=== PATIENT | female | born 1965 | race Caucasian/White ===

== ENCOUNTER → 2020-03-30 14:15 | Outpatient (CLI) | payer BC, SELFPAY ==
[2020-03-30 15:07] LABS: Basophils # 0.1 K/mm3 (0-0.2); Basophils % 0.6 % (0.1-2.0); Eosinophils % 0.1 % (0.1-12.0); Hematocrit 50.1 % (37.0-47.0); Hemoglobin 16.4 g/dL (12.2-16.2); Lymphocytes # 2.7 K/mm3 (0.7-4.5); Lymphocytes % 26.8 % (10-50); Mean Corpuscular HGB Conc 32.8 g/dL (31.8-35.4); Mean Corpuscular Hemoglobin 29.8 pg (27.0-31.2); Mean Platelet Volume 7.4 fl (7.4-10.4); Monocytes # 0.3 K/mm3 (0.1-1.0); Monocytes % 3.3 % (1.7-9.3); Neutrophils % 69.3 % (37.0-80.0); Platelet Count 309 K/mm3 (142-424); Red Cell Distribution Width 13.7 % (11.5-17.5); White Blood Count 10.1 K/mm3 (4.8-10.8)
[2020-03-30 15:45] LABS: Alanine Aminotransferase 24 U/L (12-78); Albumin Level 4.3 g/dl (3.5-5.0); Albumin/Globulin Ratio 1.5 (1.1-1.8); Alkaline Phosphatase 76 U/L (38-126); Amylase 49 U/L (30-110); Anion Gap 11.5 mEq/L (5-15); Aspartate Amino Transferase 27 U/L (14-36); Bilirubin,Total 0.4 mg/dl (0.2-1.3); Blood Urea Nitrogen 10 mg/dl (7-17); Calcium 9.6 mg/dl (8.4-10.2); Carbon Dioxide 31 mmol/L (22.0-30.0); Chloride 101 mmol/L (98-107); Estimated Glomerular Filt Rate 88 ml/min (>60); GFR (African American) 106 ML/MIN (>60); Globulin 2.9 g/dL (1.3-3.2); Glucose 100 mg/dl (74-100); Lipase 45 U/L (23-300); Potassium 4.5 mmoL/L (3.5-5.1); Sodium 139 mmol/L (136-145); Total Protein,Serum 7.2 g/dl (6.3-8.2)
== END ==
PROVIDERS: Visit Provider Nurse Practitioner Family
DX: R10.9 Unspecified abdominal pain (principal)
CPT/HCPCS: 36415; 80053; 82150; 83690; 85025; 86677

== ENCOUNTER 2022-05-15 12:09 | Emergency (ER) | payer BC, SELFPAY ==
[2022-05-15 14:27] VITALS: BP 133/91; PULSE 100; RESP 18; TEMP 37; O2SAT 97; BMI 31.4
--- NOTE | 2022-05-15 14:31 | EXP.UTC ---
Discharge Plan Disposition Patient Disposition: Home, Self-Care Condition: Good Prescriptions Prescriptions: New amoxicillin [amoxicillin] 500 mg tablet 500 mg PO TID 10 Days Qty: 30 0RF benzonatate [benzonatate] 100 mg capsule 100 mg PO TIDP PRN (Reason: Cough) Qty: 30 0RF methylprednisolone 4 mg Tablets,Dose Pack 4 mg PO DIRECTED Qty: 21 0RF Referrals Follow up/Referrals: Natalia Crockett [Primary Care Provider] - See instructions Activity Restrictions/Add. Instructions Additional Instructions/Restrictions: Drink plenty of fluids. Take tylenol or ibuprofen for pain or fever. Take the medications as directed. Follow up with your regular doctor. GO TO THE ER FOR ANY WORSENING SYMPTOMS Clinical Impressions Clinical Impression: Otitis media Instructions Patient Instructions: Middle Ear Infection Discharge ED Provider: Jea Brito [facility] General Stated complaint: Left earache Mode of Arrival: Ambulatory Source of Information: Patient Limitations: No Limitations Time Seen by Provider: 05/15/22 14:30 HEENT Symptoms (Recalled from RN notes): Yes Resp Symptoms (Recalled from RN notes): Yes Skin Symptoms (Recalled from RN notes): No MS Symptoms (Recalled from RN notes): No Functional Status (Recalled from RN notes): n/a History of Present Illness Provider Complaint: pt comes in with c/o left ear pain, sinus drainage, fever. symptoms began sunday Related Data Previous Rx's Medication Instructions Recorded amoxicillin 500 mg tablet 500 mg PO TID 10 days #30 tabs 05/15/22 benzonatate 100 mg capsule 100 mg PO TIDP PRN Cough #30 caps 05/15/22 methylprednisolone 4 mg tablets in 4 mg PO DIRECTED #21 tabs 05/15/22 a dose pack Allergies Allergy/AdvReac Type Severity Reaction Status Date / Time From LEVAQUIN Allergy Unknown MAKES HER Uncoded 10/10/17 14:08 FEEL FLUSHED AND FUNNY Worker's Comp Is this a Worker's Comp case?: No [facility] Disclaimer: The information contained in this section may have been updated after the patient was seen, as this information can be updated by other users. Social History Smoking Status: Current every day smoker tobacco type: cigarettes packs per day: 1 alcohol intake: current substance use type: denies use current occupational status: retired Travel in the last 8 weeks: None ROS Obtained: Yes All systems reviewed & no additional complaints except as documented Constitutional Constitutional: Denies chills, Reports fever(s) and Reports poor appetite Eyes Eyes: Denies eye discharge ENT Ears, Nose, Mouth, and Throat: Denies ear discharge, Reports otalgia, Denies hearing loss, Denies sinus pain and Reports sore throat Cardiovascular Cardiovascular: Denies chest pain and Denies dyspnea Respiratory Respiratory: Denies chest congestion, Reports cough and Denies dyspnea Gastrointestinal Gastrointestingal: Denies abdominal pain, diarrhea, nausea or vomiting Musculoskeletal Musculoskeletal: Denies arthralgias Integumentary/Breasts Skin/Breast: Denies rash Physical Exam General General appearance: alert and in no apparent distress Head Head exam: atraumatic, normocephalic and normal inspection Eye Eye exam: Present normal appearance; Absent PERRL or EOMI ENT ENT exam: Present mucous membranes moist and normal external ear exam Expanded ENT Exam TM/Canal exam: Bilateral TM: erythema, bulging and effusion Nose exam: Absent sinus tenderness Nasal speculum exam: Bilateral: normal Mouth exam: Present normal external inspection and other; Absent drooling Teeth exam: Present normal inspection Throat exam: Present tonsillar erythema and tonsillomegaly Neck Neck exam: Present normal inspection, full ROM and trachea midline; Absent tenderness, meningismus or lymphadenopathy Chest Chest inspection: Present normal inspection and symmetric chest wall rise; Absent tendern
[2022-05-15 15:03] VITALS: BP 133/91; PULSE 100; RESP 18; TEMP 37
== END 2022-05-15 15:04 | disposition home or self-care (01) ==
PROVIDERS: Emergency Provider Nurse Practitioner Family; PCP Family Medicine
DX: H66.90 Otitis media, unspecified, unspecified ear (principal)
CPT/HCPCS: 99212; G0463

== ENCOUNTER 2024-06-01 10:02 | Emergency (ER) | payer BC, SELFPAY ==
[2024-06-01 10:31] VITALS: BP 125/90; PULSE 129; RESP 20; TEMP 37.2; O2SAT 94; BMI 32.3
--- NOTE | 2024-06-01 10:34 | ED_ITS ---
Discharge Plan Disposition Patient Disposition: Home, Self-Care Condition: Good Prescriptions Prescriptions: New amoxicillin 875 mg tablet 875 mg PO Q12H Qty: 20 0RF benzonatate 100 mg capsule 100 mg PO TIDP PRN (Reason: Cough) Qty: 30 0RF methylprednisolone 4 mg Tablets,Dose Pack 4 mg PO DIRECTED 6 Days Qty: 21 0RF Rx Instructions: Take 1 pack as directed for 6 days Referrals Follow up/Referrals: Natalia Crockett [Primary Care Provider] - See instructions Activity Restrictions/Add. Instructions Additional Instructions/Restrictions: Drink plenty of fluids. Take tylenol or ibuprofen for pain or fever. Take the medications as directed. Follow up with your regular doctor. GO TO THE ER FOR ANY WORSENING SYMPTOMS Clinical Impressions Clinical Impression: Sinusitis, Acute bronchitis Instructions Patient Instructions: DI for Sinusitis, DI for Acute Bronchitis Print Language Print Language: French Discharge ED Provider: Jae Brito [facility] General Stated complaint: cough congestion Mode of Arrival: Ambulatory Source of Information: Patient Time Seen by Provider: 06/01/24 10:34 Description of Symptoms (Recalled from Triage Doc. by RN): COUGH AND CONGESTION, N/V/HANSON FEVER HEENT Symptoms (Recalled from RN notes): Yes Resp Symptoms (Recalled from RN notes): Yes Skin Symptoms (Recalled from RN notes): No MS Symptoms (Recalled from RN notes): No Functional Status (Recalled from RN notes): WNL Related Data Previous Rx's ?Medication ?Instructions ?Recorded amoxicillin 875 mg tablet 875 mg PO Q12H #20 tabs 06/01/24 benzonatate 100 mg capsule 100 mg PO TIDP PRN Cough #30 caps 06/01/24 methylprednisolone 4 mg tablets in 4 mg PO DIRECTED 6 days #21 tabs 06/01/24 a dose pack Allergies Allergy/AdvReac Type Severity Reaction Status Date / Time From LEVAQUIN Allergy Unknown MAKES HER Uncoded 10/10/17 14:08 FEEL FLUSHED AND FUNNY Worker's Comp Is this a Worker's Comp case?: No [facility] Disclaimer: The information contained in this section may have been updated after the patient was seen, as this information can be updated by other users. Social History (Updated 05/16/22 @ 21:07 by Jae Brito APRN) Smoking Status: Current every day smoker tobacco type: cigarettes packs per day: 1 alcohol intake: current alcohol intake frequency: holidays/special occasions only substance use type: denies use current occupational status: retired Travel in the last 8 weeks: None Have you lived/traveled outside [place] in past 30 days?: No Contact w/someone who lives/traveled outside US past 30 days?: No Exposure to someone with infectious disease in past 14 days?: No Do you have a fever (greater than 100.4 F or 38 C)?: No Have you tested positive for COVID-19: No Exposed to someone with COVID-19 in past 14 days?: No Do you have a sore throat?: Yes Do you have a cough?: Yes Do you have any weakness?: No Do you have any diarrhea?: No Are you experiencing any unusual bleeding?: No Do you have any muscle aches/pain?: No Do you have any abdominal pain?: No Are you experiencing loss of taste or smell?: No ROS Obtained: Yes All systems reviewed & no additional complaints except as documented Constitutional Constitutional: Reports poor appetite Eyes Eyes: Reports system reviewed and no additional complaints, except as documented ENT Ears, Nose, Mouth, and Throat: Reports as per HPI Cardiovascular Cardiovascular: Reports system reviewed and no additional complaints, except as documented and Denies chest pain Respiratory Respiratory: Denies shortness of breath, Reports chest congestion, Reports cough, Denies stridor and Denies wheezing Gastrointestinal Gastrointestingal: Reports system reviewed and no additional complaints, except as documented; Denies abdominal pain, diarrhea or vomiting Musculoskeletal Musculoskeletal: Reports system reviewed and no additional complaints, except as documented and Denies arthralgias Integumentary/Breasts Skin/Breast: Reports system reviewed and no additional complaints, except as documented and Denies rash Neurologic Neurologic: Denies paresthesias Allergic/Immunologic Allergic/Immunologic: Denies wheezing Physical Exam General General appearance: alert and in no apparent distress Eye Eye exam: Present normal appearance, PERRL and EOMI ENT ENT exam: Present mucous membranes moist and normal external ear exam Expanded ENT Exam External ear exam: Present normal external inspection TM/Canal exam: Bilateral TM: erythema and bulging Nose exam: Absent sinus tenderness Nasal speculum exam: Bilateral: normal Mouth exam: Present normal external inspection; Absent drooling Teeth exam: Present normal inspection Throat exam: Present tonsillar erythema and tonsillomegaly Neck Neck exam: Present normal inspection, full ROM and trachea midline; Absent tenderness, lymphadenopathy or thyromegaly Chest Chest inspection: Present normal inspection and symmetric chest wall rise; Absent tenderness or rash Respiratory Respiratory exam: Present normal lung sounds bilaterally; Absent respiratory distress, wheezes, stridor or accessory muscle use Cardiovascular Cardiovascular exam: Present regular rate, normal rhythm and normal heart sounds Abdominal Exam Abdominal exam: Present soft; Absent distention, tenderness, guarding, rebound or rigidity Extremities Exam Extremities exam: Present normal inspection, full ROM and normal capillary refill; Absent tenderness or calf tenderness Back Exam Back exam: Present normal inspection and full ROM; Absent tenderness Neurological Exam Neurological exam: Present alert and oriented X3 Psychiatric Psychiatric exam: Present normal affect and normal mood Skin Skin exam: Present warm, dry, intact and normal color Lymphatic Lymphatic Findings: no adenopathy Medical Decision Making Medical Records Medical records reviewed: No I reviewed the patient's medical records. Screening: Per USPSTF and CDC recommendations, given the prevalence of disease in our region, it is our hospital?s policy to screen for HIV and viral Hepatitis for all patients aged 18 and over and those with ongoing risk factors. Eron Inquiry Pt receiving controlled substance: No Vital Signs: 06/01/24 10:31 Temperature 99.0 F Temperature Source Oral Pulse Rate [Left Radial] 129 H Respiratory Rate 20 Blood Pressure [Left Arm] 125/90 Blood Pressure Mean [Left Arm] 101 02 Sat by Pulse Oximetry 94 L Lab Data Lab results reviewed: Yes I reviewed the patient's lab results.
[2024-06-01 10:56] VITALS: BP 125/90; PULSE 129; RESP 20; TEMP 37.2
== END 2024-06-01 10:59 | disposition home or self-care (01) ==
PROVIDERS: Emergency Provider Nurse Practitioner Family; PCP Family Medicine
DX: J20.9 Acute bronchitis, unspecified (principal); J32.9 Chronic sinusitis, unspecified
CPT/HCPCS: 99213; G0381

== ENCOUNTER 2024-12-21 09:30 | Outpatient (CLI) | payer BC, SELFPAY ==
[2024-12-21 21:05] LABS: Influenza A, PCR Not Detected (NotDetected)
[2024-12-21 21:06] LABS: Influenza B, PCR Not Detected (NotDetected)
--- OUTSIDE RECORDS SUMMARY | 2024-12-23 10:48 | XMS_ITS | Patient Health Record ---
Author Organization [facility] Billing Info Address [address] [place], [place] [id number] Support Name Relationship Address Phone Melanie Martinez Guarantor Unknown [phone] Allergies Allergen (clinical drug ingredient) Drug/Non Drug Allergy documented on EMR Reaction Allergy Type Onset Date Status Levaquin flushing Drug Allergy Active Reason For Referral No Information Medications Medication SIG (Take, Route, Frequency, Duration) Notes Start Date End Date Status Multivitamins Orally Active Zoloft 50 MG 1 tablet Orally Once a day Active Social History Tobacco Use: Social History Observation Description Date Details (start date - stop date) Current Smoker NA - NA Tobacco Status: Question Answer Notes Patient is a current every day smoker Plan Of Treatment No Information Medical (General) History Medical History History ICD Code anxiety breast cancer Surgical History Surgery Date(Month/Year) right mastectomy 07/2011 Hospitalization History Reason Date(Month/Year) see surgical
--- OUTSIDE RECORDS SUMMARY | 2024-12-23 10:48 | XMS_ITS | Clinical Summary ---
Author Organization [facility] Address [address] [place] [id number] Phone [email or web address] Care Team Providers Care Lean Coach Name Role Phone Natalia Crockett Primary Care Provider [phone] Active Problems Problem Noted Date Diagnosed Date Mixed anxiety depressive disorder 09/05/2016 Overview (06/13/2017): Immunizations Immunization Administration Dates Next Due Influenza single-dose SYRING E (Afluria, Fluarix, Fluzone, Flulaval) trivalent (CVX-140) 03/10/2016 Social History Tobacco Use Types Packs/Day Years Used Date Smoking Tobacco: Every Day Intimate Partner Violence Answer Date R ecorded Insults You Not on file 08/30/2020 Threatens You Not on file 08/30/2020 Screams at You Not on file 08/30/2020 Physically Hurt Not on file 08/30/2020 Intimate Partner Violence Score Not on file 08/30/2020 Stress Answer Date Recorded Stress in your Life Not on file 03/23/2024 Dealing with Stress 3 03/23/2024 Comments Unknown Sex and Gender Information Value Date Recorded Sex Assigned at Not on file Legal Sex Female 1:36 PM [employer] Gender Identity Not on file Sexual Orientation Not on file Last Filed Vital Signs Vital Sign Reading Time Taken Comments Blood Pressure 132/85 07/25/2018 9:43 AM EST Pulse 101 09/05/2016 1:09 PM CDT Temperature - - Respiratory Rate - - Oxygen Saturation - - Inhaled Oxygen Concentration - - Weight 94.3 kg (208 lb) 07/25/2018 9:43 AM EST Height 170.2 cm (5' 7 ) 07/25/2018 9:43 AM EST Body Mass Index 32.58 07/25/2018 9:43 AM EST Plan of Treatment Health Maintenance Due Date Last Done Comments CT Colonography 1966 Cervical Cancer Screening Combo 1966 Colonoscopy 1966 Colorectal Cancer Screening Combo 1966 DNA Cologuard 1966 Dental Cleaning/Exam 1966 FIT or FOBT Test 1966 HIV Screening 1966 HPV / Cotest 1966 Hepatitis C Screening 1966 Pap Testing 1966 Sigmoidoscopy 1966 Annual Preventive Exam 1984 Hep B Infection Screening - Triple Screen 1984 Hepatitis B Immunization (1 of 3 - 19+ 3-dose series) 1985 Pneumococcal: Ped (0 to 5 Yrs) and At-Risk Member (6 to 64 Yrs) (1 of 2 - PCV) 1985 03/04/2010 Breast Cancer Screening 1996 Zoster Immunization (1 of 2) 2016 Tetanus Diphtheria and Pertussis Immunization (2 - Td or Tdap) 03/01/2019 03/01/2009 Covid-19 Immunization ( - 2023- season) 2024 Influenza Immunization (#1) 01/19/202502/19, 06/06/2011 Pneumococcal: 65+ Years Discontinued 03/04/2010 HIB Immunization Aged Out No longer e ligible based on patient's age to complete this topic HPV Immunization Aged Out No longer e ligible based on patient's age to complete this topic Hepatitis A Immunization Aged Out No longer eligible based on patient's age to complete this topic Polio Immunization Aged Out No longer eligible based on patient's age to complete this topic Insurance [employer] [facility] Care Teams Lean Coach Relationship Specialty Start Date End Date Natalia Crockett [phone] [phone] PCP - General Family Medicine 12/24/19
[2024-12-24 15:36] LABS: Coronavirus 19, PCR Detected (NotDetected)
== END 2024-12-21 23:59 | disposition home or self-care (01) ==
LOC: LAB.DROPOF 12-23 10:46
PROVIDERS: PCP Nurse Practitioner Family; Visit Provider Nurse Practitioner Family
DX: J06.9 Acute upper respiratory infection, unspecified (principal)
CPT/HCPCS: 87636

== ENCOUNTER 2025-03-25 11:30 | Outpatient (CLI) | payer BC, SELFPAY ==
--- OUTSIDE RECORDS SUMMARY | 2025-03-25 11:58 | XMS_ITS | Patient Health Record ---
Author Organization [facility] Billing Info Address [address] [place], [place] [id number] Support Name Relationship Address Phone Melanie Martinez Guarantor Unknown [phone] Allergies Allergen (clinical drug ingredient) Drug/Non Drug [...]
--- OUTSIDE RECORDS SUMMARY | 2025-03-25 11:58 | XMS_ITS | Clinical Summary ---
Author Organization [facility] Address [address] [place] [address] Phone Care Team Providers Care Hydrometeorologist Name Role Phone Nigel Martínez MD Unavailable [ ] Conditions or Problems Problem Name Problem Code Onset Date Status Entry Date Provider Comment Standard Description Annotate NAUSEA 424849188 (SNOMED CT) Active Nigel Martínez MD Nausea CELLULITIS /ABSCESS, TRUNK 257477632 (SNOMED CT) Active Nigel Martínez MD Cellulitis and abscess of trunk MRSA RIGHT BREAST ABSCESS/CE LLULITIS N61 (ICD-10-CM) Active Emmanuelle W Inflammatory disorders of breast MRSA [id number] (SNOMED CT) Active Emmanuelle W Methicillin resistant Staphylococcus aureus infection BREAST CA D05.90 (ICD-10-CM) Active Emmanuelle W 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 ONDANSETRON HCL [id number] Nigel Martínez MD DOXYCYCLINE HYCLATE 100 MG CAPS One po bid x 14 days DOXYCYCLINE HYCLATE 12012497499 Nigel Martínez MD DOXYCYCLINE HYCLATE 100 MG CAPS One po bid x 14 days DOXYCYCLINE HYCLATE 90293846448 Nigel Martínez MD BACTRIM DS 800-160 MG TABS SULFAMETHOXAZOLE -TRIMETHOPRIM [id number] Nigel Martínez MD CUBICIN 500 MG INTRAVENOUS SOLUTION RECONSTITUTED 500mg Iv daily OPAT DAPTOMYCIN 04194194479 Nigel Martínez MD PERCOCET 7.5-500 MG ORAL TABLET OXYCODONE-ACETAM INOPHEN 06607856091 Nigel Martínez MD ZOFRAN 8 MG ORAL TABLET One po tid prn nausea. ONDANSETRON HCL 14396940104 Nigel Martínez MD CUBICIN 500 MG INTRAVENOUS SOLUTION RECONSTITUTED 500mg Iv daily OPAT DAPTOMYCIN 56249604111 Nigel Martínez MD PERCOCET 7.5-500 MG ORAL TABLET OXYCODONE-ACETAM INOPHEN 78574495176 Nigel Martínez MD BACTRIM DS 800-160 MG TABS SULFAMETHOXAZOLE -TRIMETHOPRIM 51683554284 Nigel Martínez MD TAMOXIFEN CITRATE TABLET TAMOXIFEN CITRATE TABS 57466322599 Nigel Martínez MD ZOLOFT 50 MG TABS SERTRALINE HCL 94205582460 Nigel Martínez MD DOXYCYCLINE HYCLATE 100 MG CAPS One po bid x 7 days DOXYCYCLINE HYCLATE 17624701299 Nigel Martínez MD ACIDOPHILUS CAPS LACTOBACILLUS 74908385954 Nigel Martínez MD DOXYCYCLINE HYCLATE 100 MG CAPS One po bid x 7 days DOXYCYCLINE HYCLATE 13338414682 Nigel Martníez MD CUBICIN 500 MG INTRAVENOUS SOLUTION RECONSTITUTED IV q24 OPAT DAPTOMYCIN 57445307325 Nigel Martínez MD POTASSIUM CHLORIDE ER 10 MEQ CR-TABS Take 4 tabs (40meq) by mouth X 1 dose POTASSIUM CHLORIDE 11164042131 Nigel Martínez MD DAKINS SOLUTION DAKINS SOLN 80020899732 Nigel Martínez MD LOMOTIL TABS DIPHENOXYLATE-AT ROPINE TABS 20483975117 Nigel Martínez MD POTASSIUM CHLORIDE ER 10 MEQ CR-TABS Take 4 tabs (40meq) by mouth X 1 dose POTASSIUM CHLORIDE 96260615454 Nigel Martínez MD DAKINS SOLUTION DAKINS SOLN 13141148189 Emmanuelle W ZOLOFT 50 MG TABS SERTRALINE HCL 41869310270 Emmanuelle W ACIDOPHILUS CAPS LACTOBACILLUS [id number] Emmanuelle W LOMOTIL TABS DIPHENOXYLATE-AT ROPINE TABS 11371311413 Emmanuelle W MULTIPLE VITAMINS TABS MULTIPLE VITAMIN 22080974978 Emmanuelle W CUBICIN 500 MG INTRAVENOUS SOLUTION RECONSTITUTED IV q24 OPAT DAPTOMYCIN 84059008387 Emmanuelle W Medications Administered No information available. Allergies, Adverse Reactions, Alerts Allergy Name Reaction Description Start Date Severity Statu s Provider LEVOFLOXACIN flushing in the past , otherwise tolerates it Mild Active Emmanuelle W Results Date Name Value Unit Range Flag Description Clinical Lists Update: Prelo ad CIGARET SMKG yes Tobacco smoking status SMOK STATUS current every day smoker Tobacco smoking status Lab Report: ESR (Sed Rate) ESR 28 mm/h 0-20 H Erythrocyte sedimentation rate by Westergren method Lab Report: CBC w Manual Dif f PMN BANDS 2.0 % neutrophils , band form as percent of blood leukocytes Lab Report: C-Reactive Prote in CRPCARDRISK 28.400 mg/L 0.000-10. 0 H C reactive protein [Mass/volume] in Serum or Plasma Lab Report: CPK CPK 24 U/L 26-174 L Creatine fiordaliza se [Enzymatic activity/volume] in Serum or Plasma Lab Report: Comprehensive Me tabolic Panel ANIONGAP 5 mmol/L 3-11 N anion gap, s dom GFRC 101 mL/min/1 .73m2 Glomerular Filtration Rate Calculation ALBUMIN 4.2 g/dL 3.4-4.8 N Albumin [Mass/volume] in Serum or Plasma PROTEIN, TOT 7.2 g/dL 6.4-8.3 N Protein [Mass/volume] in Serum or Plasma BILI TOTAL 0.2 mg/dL 0.3-1.2 L Bilirubin. total [Mass/volume] in Serum or Plasma SGPT (ALT) 31 U/L 7-40 N Alanine aminotransferase [Enzymatic activity/volume] in Serum or Plasma SGOT (AST) 22 U/L 8-33 N Aspartate aminotransferase [Enzymatic activity/volume] in Serum or Plasma ALK PHOS 61 U/L 25-100 N Alkaline phosphatase [Enzymatic activity/volume] in Blood CALCIUM 9.1 mg/dL 8.7-10.4 N Calcium [Moles/volume] in Serum or Plasma CO2 29 mmol/L 20-31 N Carbon dioxid e, total [Moles/volume] in Venous blood CHLORIDE 108 mmol/L 98-107 H Chloride [Moles/volume] in Serum or Plasma POTASSIUM 3.5 mmol/L 3.4-5.4 N Potassium [Moles/volume] in Serum or Plasma SODIUM 142 mmol/L 136-145 N Sodium [Moles/volume] in Serum or Plasma CREATININE 0.7 mg/dL 0.6-1.3 N Creatinine [Mass/volume] in Serum or Plasma BUN 10 mg/dL 6-20 N Urea nitrogen [Mass/volume] in Serum or Plasma GLUCOSE SER 90 mg/dL 70-100 N Glucose [Mass/volume] in Serum or Plasma Lab Report: Culture WOUND wi th Gram Stain CULTURE Specimen/Sourc e: Wound/Breast Rt culture, comment Lab Report: CBC w Manual Dif f RBC MORPH RBC morphology consistant with indices. RBC morphology BASOPHIL % 1.0 % 0.0-1.0 N Basophils/ 100 leukocytes in Blood by Manual count % EOS AUTO 4.0 % 0.0-3.0 H Eosinophil s/100 leukocytes in Blood by Automated count MONOCYTE BF 5.0 % 0.0-12.0 N monocyte s as percent of body fluid leukocytes LYMPHS % 25.0 % 24.0-44.0 N Lymphocyte s/100 leukocytes in Blood by Automated count PMN % 65.0 % 41.0-71.0 N Neutrophils /100 leukocytes in Blood by Automated count BASOABSOLMAN 0.06 K/MCL {Cells}/ uL 0.00-0.20 N basophils, absolute, manual EOS ABSLT 0.34 10*3/uL 0.10-0.30 H Eosinophi ls [#/volume] in Blood MONOCYTABMAN 0.54 K/MCL {Cells}/ uL 0.00-1.00 N monocytes, absolute, manual LYMPHSABSMAN 2.08 K/MCL {Cells}/ uL 0.60-4.80 N lymphocytes, absolute, manual ABS NEUTROPH 6.55 10*3/uL 1.50-8.30 N Neutro phils [#/volume] in Blood PLATELETS 343 10*3/mm3 150-450 N Platelets [#/volume] in Blood by Automated count RDW_ 13.7 11.3-14.5 N RDW, no uni ts MCHC 33.0 G/DL 32.0-36.0 N MCHC [Mass/ volume] by Automated count MCH 30.1 pg 27.0-31.0 N MCH [Entiti c mass] by Automated count MCV 91.2 fL 80.0-99.0 N MCV [Entiti c volume] by Automated count HCT 43.3 % 34.5-44.0 N Hematocrit [Volume Fraction] of Blood by Automated count HGB 14.3 g/dL 11.5-15.5 N Hemoglobin [Mass/volume] in Blood RBC 4.75 M/MCL 10*6/mm3 3.89-5.14 N Erythro cytes [#/volume] in Blood by Automated count WBC 9.57 10*3/mm3 3.50-10.8 0 N Leukocytes [#/volume] in Blood by Automated count Office Visit: room 3 SMOK ADVICE yes Smoking c essation education (procedure) MEDS REVIEW Done Documenta tion of current medications (procedure) Plan of Care Type Date Detail Pending order Discontinue IV a ntibiotics Pending order PICC Removal Pending order New Oral Antibio tic Pending order CMP Pending order CBC with Differe ntial Pending order CPK Pending order Continue IV anti biotics Pending order Continue IV anti biotics Pending order CMP Pending order CBC with Differe ntial Pending order CPK Pending order CMP Pending order CBC with Differe ntial Pending order CPK Pending order C- reactive prot ein Pending order Wound Culture an d Sensitivity Pending order New IV antibioti c Pending order PICC Line Insert ion Pending order PICC Removal Pending order Discontinue IV a ntibiotics Pending order New Oral Antibio tic Pending order CMP Pending order CBC with Differe ntial Pending order CPK Pending order CBC with Differe ntial Pending order CMP Pending order CPK Pending order Continue IV anti biotics Pending order CMP Pending order CBC with Differe ntial Pending order CPK Pending order Sedimentation Ra te (ESR) Pending order C- reactive prot ein Pending order Continue IV anti biotics Pending order CMP Pending order CBC with Differe ntial Pending order CPK Pending order Continue IV anti biotics Procedures Code Procedure Name Date Entry Date CPT-21859 [facility] CPT-67707 CBC with Differential CPT-90470 CPK CPT-ca Continue IV antibiotics 2011 CPT-ca Continue IV antibiotics 2011 CPT-95538 CMP CPT-04920 CBC with Differential 02/13 CPT-42755 CPK CPT-40486 CMP CPT-99219 CBC with Differential 02/11 CPT-66006 CPK CPT-48901 C- reactive protein CPT-87839 Wound Culture and Sensitivity CPT-oma New IV antibiotic CPT-43678 PICC Line Insertion CPT-PICREM PICC Removal CPT-DC Discontinue IV antibiotics 2 CPT-rafal New Oral Antibiotic CPT-01969 [facility] CPT-08370 CBC with Differential 0 10/31 CPT-31533 CPK CPT-83891 CBC with Differential 10/25 CPT-82487 CMP CPT-43446 CPK CPT-ca Continue IV antibiotics 2011 CPT-82237 CMP CPT-46141 CBC with Differential 10/17 CPT-12110 CPK CPT-84875 Sedimentation Rate (ESR) 201 06/25/29 CPT-01683 C- reactive protein CPT-ca Continue IV antibiotics 2011 CPT-68082 CMP CPT-32977 CBC with Differential 10/10 CPT-30367 CPK CPT-ca Continue IV antibiotics 2011 Vital Signs Date Name Value Unit Description BMI (Body Mass Index) 32.24 kg/m2 Bod y Mass Index (Ratio) Body Temperature 99.2 [degF] temperat ure E&M BP Diastolic 74 mm[Hg] blood pressu re, diastolic BP Systolic 110 mm[Hg] blood pressur e, systolic Heart Rate 84 /min pulse rate Height 66 [in_us] height E&M Respiratory Rate 16 /min respirat ory rate E&M Weight Measured 199 [lb_av] weight E& M Weight Measured 199 [lb_av] weight E& M Immunizations No information available. Advance Directives No information available.
--- OUTSIDE RECORDS SUMMARY | 2025-03-25 11:58 | XMS_ITS | Patient Health Record ---
Author Organization [facility] Address [address] [place] [phone] Care Team Providers Care Health Information Manager Name Role Phone Tony De Leona Unavailable [phone] Allergies No Known Allergies Reason For Referral No Information Vital Signs Heart Rate 103 /min 03/25/2025 Blood pressure diastolic 80 mm Hg 03/25/2025 Height 66 in 03/25/2025 Blood pressure systolic 132 mm Hg 03/25/2025 Weight 209 lbs 03/25/2025 BMI 33.73 kg/m2 03/25/2025 Encounters Encounter Location Date Provider Diagnosis [facility] [address] [place] [id number] 03/25/2025 Eav De Leon Ankle edema M25.473 ; Left shoulder pain, unspecified chronicity M25.512 and Tachycardia R00.0 [facility] [address] [place] [id number] 03/24/2025 Eva De Leon Assessments Encounter Date Diagnosis (ICD Code) Assessment Notes Treatment Notes Treatment Clinical Notes Section Notes 03/25/2025 Ankle edema (ICD-10 - M25.473) 03/25/2025 Tachycardia (ICD-10 - R00.0) 03/25/2025 Left shoulder pain, unspecified chronicity (ICD-10 - M25.512) Plan Of Treatment Pending Test Test Name Order Date Holter Monitor- 48 hour 03/25/2025 Insurance Providers Payer Name Payer Address Payer Phone Subscriber Number Group Number Insured Name Patient Relationship to Insured Coverage Start Date Coverage End Date [employer] [address] [place] [address] [id number] Melanie Martinez Self - patient is the insured Medical (General) History Medical History History ICD Code sinus allergy breast cancer depression female problems
--- OUTSIDE RECORDS SUMMARY | 2025-03-25 11:59 | XMS_ITS | Data Portability ---
Author Organization [facility] ClinCAROLYN morgan LOOKOUT CLOSED Address [address] [facility] [facility] [address] [place] [address] Care Team Providers Care Literacy Teacher Name Role Phone SANTOS BARNETT Hematology/Oncology COLUMBA ALEXANDER Primary Care Provider Unavailabl e Assessment No assessment recorded. Plan of Treatment Reminders Order Date Submit Date Provider Last Modified By Organization Details Last Modified Time Details Appointments None recorded. Lab CMP, serum or plasma 2019 [facility], [address] [place] [address], [phone], 0 17:10:19 lipase, serum or plasma 2019 [facility], [address] [place] [address], [address], 0 17:10:19 CBC w/ auto diff 2019 [facility], [address] [place] [address], [address], 0 16:10:46 amylase, serum or plasma [email or web address] [place] [address] Laboratory, [address] [place] [address], [address], 0 14:13:46 H pylori Ab, serum 2019 [facility], [address] [place] [address], [address], 0 01:08:20 urinalysis, complete 2019 020 [email or web address] [facility], [address] [place] [address], [address], 0 14:13:46 TSH, serum or plasma 2018 019 [facility], [address] [place] [address], [address], 9 18:21:09 CBC w/ auto diff 2018 019 [facility], [address] [place] [address], [address], 9 17:53:27 BMP, serum or plasma 2018 019 [facility], [address] [place] [address], [address], 9 18:14:11 magnesium, QN, serum or plasma 2018 019 [facility], [address] [place] [address], [address], 9 18:14:09 surgical pathology study 2017 018 [facility], [address] [place] [address], [address], 8 09:32:48 Referral None recorded. Procedures None recorded. Surgeries None recorded. Imaging electrocard iogram [address] [facility] [place], [address] [place], [address], 9 14:25:28 event monitor 2018 019 [email or web address] [place] [address] [facility], [address] [facility] , [facility], [place], [address], 9 14:45:10 event monitor 2018 019 [email or web address] [facility], [address], [place], [address], 9 07:45:02 Medication Orders Zoloft 50 mg tablet [address] [facility], [address], [place], [address], 0 16:29:09 Patient TargetsNo targets recorded. Patient Instructions Encounter Date Encounter Id Patient Instructions Last Modified By Organization Details Last Modified Time 08/15/2017 [id number] seborrheic keratosis: care instructions [email or web address] Not available 08/15/2017 17:26:13 Risks/Benefits/O p tions/Side Effects of diagnosis and treatment discussed. UV protection and signs of skin cancer discussed. [email or web address] Not available 08/15/2017 15:26:38 05/28/2018 [id number] influenza (flu) vaccine: care instructions Not available 05/28/2018 14:06:37 eating healthy foods: care instructions Not available 05/28/2018 14:06:36 When You Want to Lose Weight: Care Instructions Not available 05/28/2018 14:06:36 learning about mood disorders Not available 05/28/2018 14:06:37 Reason for Referral None Reported. Results Created Date Observation Date Name Description Value Unit Range Abnormal Flag Note LastModifiedBy Organization Detail LastModifiedTime 08/16/19 18 08/15/2017 surgi tyrone patho logy study surgical pathology procedure SEE BELOW Depar tment of Patho logy Surgi tyrone Patho logy Repor t NAME: MELANIE VILLEGAS PATH. 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 SOURC E OF SPECI MEN: SKIN BIOPS Y, RIGHT UPPER ABDOM EN CLINI TYRONE INFOR MATIO N: D48.5 IRRIT ATED ANGIO MA, R/O ATYPI TYRONE NEVUS Gross Descr iptio n: Recei joselo in forma claude label ed with the patie nt's name and desig nated as righ t upper abdom en is a shave biops y of skin (0.6 x 0.5 x 0.1 cm). The epide rmal surfa ce is notab le for a 0.4 x 0.3 cm dark brown rough ened nodul e. The sea n is inked blue. The speci men is bisec favio and entir noe submi tted in one casse tte. JAB 08/16 10:58 AM Micro scopi c Descr iptio n: Secti ons demon strat e a colle ction of ectat ic, thin- jayy d blood vesse ls fille d with eryth rocyt es withi n the super ficia l dermi s which are lined by a annamaria ened layer of bland appea ring endot kassandra l cells . The lesio n is parti ally throm bosed . No atypi tyrone featu res are seen. DEBORAH HI M.D. Camelia d Out Date: 08/17 09:31 Page 1 of 1 Not Available [facility] [address] [place] [address], [address], 08/17/2017 09:32:48 05/28/19 19 05/28/2018 CBC w/ auto diff white blood cells 8.1 K/uL 3.8-10 .8 normal Not Available [facility] [address] [place] [address], [address], 05/28/2018 17:53:27 05/28/1905/28/2018 CBC w/ auto diff red blood cells 5.26 M/uL 3.80-5 .20 high Not Available [facility] [address] [place] [address], [address], 05/28/2018 17:53:27 05/28/19 19 05/28/2018 CBC w/ auto diff hemoglobin 15.7 g/dL 12.0-1 6.0 normal Not Available [facility] [address] [place] [address], [address], 05/28/2018 17:53:27 05/28/19 19 05/28/2018 CBC w/ auto diff hematocrit 46.8 % 35.0-4 7.0 normal Not Available [facility] [address] [place] [address], [address], 05/28/2018 17:53:27 05/28/1905/28/2018 CBC w/ auto diff MCV 89 fL 80-100 normal Not Available [facility] [address] [place] [address], [address], 05/28/2018 17:53:27 05/28/1905/28/2018 CBC w/ auto diff MCH 30 pg 26-35 normal Not Available [facility] [address] [place] [address], [address], 05/28/2018 17:53:27 05/28/1905/28/2018 CBC w/ auto diff MCHC 34 g/dL 32-36 normal Not Available [facility] [address] [place] [address], [address], 05/28/2018 17:53:27 05/28/1905/28/2018 CBC w/ auto diff RDW 13.9 % 11.0-1 5.0 normal Not Available [facility] [address] [place] [address], [address], 05/28/2018 17:53:27 05/28/1905/28/2018 CBC w/ auto diff MPV 8.7 fL 6.2-10 .5 normal Not Available [facility] [address] [place] [address], [address], 05/28/2018 17:53:27 05/28/1905/28/2018 CBC w/ auto diff platelet count 284 K/uL 130-40 0 normal Not Available [facility] [address] [place] [address], [address], 05/28/2018 17:53:27 05/28/1905/28/2018 CBC w/ auto diff neutrophil,a bsolute 5.1 K/uL 1.6-8. 4 normal Not Available [facility] [address] [place] [address], [address], 05/28/2018 17:53:27 05/28/19 19 05/28/2018 CBC w/ auto diff lymphocyte,a bsolute 2.6 K/uL 0.4-5. 1 normal Not Available [facility] [address] [place] [address], [address], 05/28/2018 17:53:27 05/28/19 19 05/28/2018 CBC w/ auto diff monocyte,abs olute 0.4 K/uL 0.0-1. 2 normal Not Available [facility] [address] [place] [address], [address], 05/28/2018 17:53:27 05/28/19 19 05/28/2018 CBC w/ auto diff eosinophil,a bsolute 0.0 K/uL 0.0-0. 8 normal Not Available [facility] [address] [place] [address], [address], 05/28/2018 17:53:27 05/28/19 19 05/28/2018 CBC w/ auto diff basophil,abs olute 0.0 K/uL 0.0-0. 3 normal Not Available [facility] [address] [place] [address], [address], 05/28/2018 17:53:27 05/28/19 19 05/28/2018 CBC w/ auto diff % neutrophils 62.5 % 42.0-7 8.0 normal Not Available [facility] [address] [place] [address], [address], 05/28/2018 17:53:27 05/28/1905/28/2018 CBC w/ auto diff % lymphocytes 31.8 % 11.0-4 7.0 normal Not Available [facility] [address] [place] [address], [address], 05/28/2018 17:53:27 05/28/19 19 05/28/2018 CBC w/ auto diff % monocytes 5.1 % 0.0-11 .0 normal Not Available [facility] [address] [place] [address], [address], 05/28/2018 17:53:27 05/28/1905/28/2018 CBC w/ auto diff % eosinophils 0.0 % 0.0-7. 0 normal Not Available [facility] [address] [place] [address], [address], 05/28/2018 17:53:27 05/28/1905/28/2018 CBC w/ auto diff % basophils 0.6 % 0.0-3. 0 normal Not Available [facility] [address] [place] [address], [address], 05/28/2018 17:53:27 05/28/1905/28/2018 CBC w/ auto diff nucleated red cells 0.1 % 0.0-0. 9 normal Not Available [facility] [address] [place] [address], [address], 05/28/2018 17:53:27 05/28/1905/28/2018 CBC w/ auto diff nucleated RBCs, absolute 0.01 K/uL not estab. normal Not Available [facility] [address] [place] [address], [address], 05/28/2018 17:53:27 05/28/1905/28/2018 magne sium, QN, serum or plasm a magnesium 2.11 mg/dL 1.60-2 .60 normal Not Available [facility] [address] [place] [address], [address], 05/28/2018 18:14:09 05/28/1905/28/2018 BMP, serum or plasm a glucose 95 mg/dL 74-100 normal Not Available [facility] [address] [place] [address], [address], 05/28/2018 18:14:11 05/28/19 19 05/28/2018 BMP, serum or plasm a blood urea nitrogen 14 mg/dL 6-20 normal Not Available [facility] [address] [place] [address], [address], 05/28/2018 18:14:11 05/28/1905/28/2018 BMP, serum or plasm a creatinine 0.78 mg/dL 0.50-0 .95 normal Not Available [facility] [address] [place] [address], [address], 05/28/2018 18:14:11 05/28/1905/28/2018 BMP, serum or plasm a BUN/creatini ne ratio 18 (calc ) 10-20 normal Not Available [facility] [address] [place] [address], [address], 05/28/2018 18:14:11 05/28/1905/28/2018 BMP, serum or plasm a sodium 142 mmol/ L 136-14 5 normal Not Available [facility] [address] [place] [address], [address], 05/28/2018 18:14:11 05/28/1905/28/2018 BMP, serum or plasm a potassium 4.0 mmol/ L 3.4-5. 0 normal Not Available [facility] [address] [place] [address], [address], 05/28/2018 18:14:11 05/28/1905/28/2018 BMP, serum or plasm a chloride 100 mmol/ L 98-107 normal Not Available [facility] [address] [place] [address], [address], 05/28/2018 18:14:11 05/28/1905/28/2018 BMP, serum or plasm a carbon dioxide 27 mmol/ L 20-32 normal Not Available [facility] [address] [place] [address], [address], 05/28/2018 18:14:11 05/28/19 19 05/28/2018 BMP, serum or plasm a anion gap 15 (calc ) 7-25 normal Not Available [facility] [address] [place] [address], [address], 05/28/2018 18:14:11 05/28/19 19 05/28/2018 BMP, serum or plasm a calcium 9.5 mg/dL 8.6-10 .2 normal Not Available [facility] [address] [place] [address], [address], 05/28/2018 18:14:11 05/28/1905/28/2018 BMP, serum or plasm a GFR 101 >= 60 normal Not Available [facility] [address] [place] [address], [address], 05/28/2018 18:14:11 05/28/19 19 05/28/2018 BMP, serum or plasm a GFR non- 87 >= 60 normal NOT E NEW calcu latio n for GFR is based on the Natio nal Kidne y Found ation CKD-E PI equat ion and allow s for repor ting GFR value s great er than 60 mL/mi n/1.7 3 m2. This calcu latio n has not been valid ated for patie nts less than 18 yrs., pregn ant women and Hispa nics. Chron ic kidne y disea se is defin ed as kidne y damag e or GFR less than 60 mL/mi n/1.7 3 m2 for 3 month s or longe r. Not Available [facility] [address] [place], [address], 05/28/2018 18:14:11 05/28/1905/28/2018 TSH, serum or plasm a TSH 3.110 uIU/m L 0.290- 5.500 normal Not Available [facility] [address] [place], [address], 05/28/2018 18:21:08 05/28/19 19 05/28/2018 elect carolyn dukes am 12 lead Electrocardi ogram performed. See estephania sharif for interp retati on Not Available [facility] [address] [place], [address], 05/28/2018 13:41:32 10/01/19 22 09/30/2021 SURGI TYRONE surgical SEE BELOW Depar tment of Patho logy Surgi tyrone Patho logy Repor t NAME: BING SHAVEREILEENA PATH. :ST-2 [id number] Copy to: Diagn osis: Recta l polyp : -Smal l hyper plast ic polyp . SOURC E OF SPECI MEN: RECTA L POLYP CLINI TYRONE INFOR MATIO N: HX OF POLYP S COLLE CTION : SPECI MEN REMOV AL: [address] IN FIXAT DIANE: [address] COLD ISCHE CHRISTINA TIME: 0 MINUT ES TOTAL FIXAT ION TIME: 52.75 HOURS Gross Descr iptio n: Recei joselo in forma claude label ed with the patie nt's name and desig nated as rect al polyp are two fragm ents of pale nelson tissu e measu ring 0.5 cm each. Entir noe submi tted in one casse tte. JAB 09/30 04:01 PM Micro scopi c Descr iptio n: A micro scopi c exami natio n was perfo rmed with findi ngs as indic ated in the diagn osis. CARYL MONTERO MD Camelia d Out Date: 10/03 11:46 Page 1 of 1 Not Available [facility] [address] [place] [address], [address], 10/03/2021 11:47:32 08/16/19 18 08/15/2017 MAMMO , scree raj, tomos ynthe sis, unila teral , w/ CAD [facility] [address] [place] [address], [place] [address] Patien t Name: MELANIE MAAZ IN Patien t : [phone] Age: 52 years Patien t 3 Orderi ng Provid er: LAY Martinez CAMP EXAM DATE: 2017 EXAM: MG LT SCREEN ING RISSA MAMMOG LILIAN INDICA TION: Screen ing. Histor y of right breast cancer treate d with mastec abraham. PROCED URE: Multis lice imagin g of the left breast was perfor med in standa rd projec tions using Hologi c Seleni a Dimens ions tomosy nthesi s equipm ent (3D mammog honey) . 2D images were create d from the 3D datase t using C-View softwa re. The study was read with the assist ance of Comput er Aided Detect ion (CAD) softwa re. COMPAR INES: This was compar ed with previo us mammog alfred dated 7, 6, 06/26/14 . FINDIN GS: There are scatte red fibrog landul ar elemen ts in the left breast . There is no suspic ious mass or cluste r of calcif icatio ns. No rona ectura l distor tion. Soha us dystro phic calcif icatio ns are noted. There appear ance is stable . IMPRES MARY: BI-RAD S catego ry 2, Benign . There is no eviden ce of malign tiffanie. Screen ing mammog alfred are recomm ended in one year. Result s were mailed or given to the julianen t. Interp reted By: Kuldip Wilson MD Electr onical ly Signed By: Kuldip Wilson MD on 018 11:02 AM [facility] [address] [place], [address], 08/15/2017 16:38:58 05/30/19 19 05/28/2018 elect carolyn dukes am No observ ation record ed. [facility] [place] [address] [place] [address], [address], 05/30/2018 08:38:24 08/06/19 19 08/25/2018 event monit or No observ ation record ed. [email or web address] [employer] [address], [place], [address], 08/06/2018 07:30:28 08/06/19 19 08/25/2018 event monit or No observ ation record ed. [email or web address] [employer] [address], [place], [address], 08/06/2018 07:30:28 08/08/19 19 08/25/2018 event monit or No observ ation record ed. [employer] [address], [place], [address], 08/08/2018 07:16:33 08/12/1908/25/2018 event monit or No observ ation record ed. [email or web address] [employer] [address], [place], [address], 08/12/2018 07:21:29 08/14/1908/25/2018 event monit or No observ ation record ed. [email or web address] [employer] [address], [place], [address], 08/13/2018 07:34:22 08/18/19 19 08/25/2018 event monit or No observ ation record ed. [employer] [address], [place], [address], 08/19/2018 08:00:58 08/22/1908/25/2018 event monit or No observ ation record ed. [email or web address] [employer] [address], [place], [address], 08/22/2018 07:19:10 08/23/1908/25/2018 event monit or No observ ation record ed. [employer] [address], [place], [address], 08/22/2018 08:20:12 08/23/19 19 08/25/2018 event monit or No observ ation record ed. [email or web address] [address], [place], [address], 08/23/2018 07:13:36 08/29/19 19 05/28/2018 event monit or No observ ation record ed. THIEN Bañuelos MD [address] [facility] [address], [place], [address], 08/30/2018 11:19:47 02/27/20 19 02/26/2019 MAMMO , scree raj, tomos ynthe sis, unila teral , w/ CAD [facility] [address] [facility] [place] [address] Patiyanira t [facility] Age: 53 years Patien t 3 Orderi ng Provid er: LAY BARNETT EXAM DATE: 2018 EXAM: MG LT SCREEN ING RISSA MAMMOG LILIAN INDICA TION: Screen ing. Histor y of right breast cancer treate d with mastec abraham. PROCED URE: Multis lice imagin g of the left breast was perfor med in standa rd projec tions using Hologi c Seleni a Dimens ions tomosy nthesi s equipm ent (3D mammog honey) . 2D images were create d from the 3D datase t using C-View softwa re. The study was read with the assist ance of Comput er Aided Detect ion (CAD) softwa re. COMPAR INES: This was compar ed with previo us mammog alfred dated 2017, 2016, 2014. FINDIN GS: There are scatte red fibrog landul ar elemen ts in the left breast . There is no mass or new cluste r of microc alcifi cation s. There is stable scarri ng from previo us reduct ion mammop lasty with associ ated fat necros is and bulky dystro phic calcif icatio ns, mainly in the upper breast and retroa reolar region . There is no suspic ious change . IMPRES MARY: BI-RAD S catego ry 2, Benign . There is no eviden ce of malign tiffanie. Screen ing mammog alfred are recomm ended in one year. Result s were given to the swati canseco. Interp reted By: Hayden sharif MD Electr onical ly Signed By: Hayden sharif MD on 019 10:54 AM [email or web address] [id number] [facility] [address] [place] [address], [address], 10/01/2019 02:38:15 09/02/1909/01/2021 MAMMO , scree raj, tomos ynthe sis, unila teral , w/ CAD [facility] [address] [place] [address], [place] [address] Swati t Name: MELANIE MAZA IN Swati canseco : 967 Age: 56 years Patiyanira t 3 Orderi ng Provid er: LAY BARNETT EXAM DATE: 2021 EXAM: MG LT SCREEN ING RISSA MAMMOG LILIAN INDICA TION: Screen ing. Histor y of right breast cancer treate d with mastec abraham. PROCED URE: Multis lice imagin g of the left breast was perfor med in standa rd projec tions using Hologi c Seleni a Dimens ions tomosy nthesi s equipm ent (3D mammog honey) . 2D images were create d from the 3D datase t using C-View softwa re. The study was read with the assist ance of Comput er Aided Detect ion (CAD) softwa re. COMPAR INES: This was compar ed with previo us mammog alfred dated 2018, 2017, 2016. FINDIN GS: There are scatte red fibrog landul ar elemen ts in the left breast . There is no suspic ious mass or cluste r of calcif icatio ns. No rona ectura l distor tion. Multip le coarse calcif icatio ns are again noted likely relate d to fat necros is and scarri ng. IMPRES MARY: BI-RAD S catego ry 2, Benign . There is no eviden ce of malign tiffanie. Screen ing mammog alfred are recomm ended in one year. Result s were mailed or given to the patien t. Interp reted By: Kuldip Wilson MD Electr onical ly Signed By: Kuldip Wilson MD on 2:36 PM INTERFACE [facility] [address], [address], 09/01/2021 14:41:54 09/10/19 25 09/08/2024 MAMMO , scree raj, tomos ynthe sis, unila teral , w/ CAD [facility] [address] [place] [address] [phone] Patiyanira t Name: MELANIE MAZA IN [facility] t : 967 Age: 59 years Patien t 3 Orderi ng Provid er: LAY Martinez CAMP EXAM DATE: 2024 EXAM: MG LT SCREEN ING RISSA MAMMOG LILIAN INDICA TION: Screen ing. Histor y of right breast cancer treate d with mastec abraham. Histor y of reduct ion mastop exy on the left. PROCED URE: Multis lice imagin g of the left breast was perfor med in standa rd projec tions using Hologi c Seleni a Dimens ions tomosy nthesi s equipm ent (3D mammog honey) . 2D images were create d from the 3D datase t using C-View softwa re. The study was read with the assist ance of Comput er Aided Detect ion (CAD) softwa re. COMPAR INES: This was compar ed with previo us mammog alfred dated 022, 019, 018. DENSIT Y: There are scatte red areas of fibrog landul ar densit y. FINDIN GS:No new mass, suspic ious calcif icatio n or area of rona ectura l distor tion.S table postsu rgical change is presen t 12:00 middle third depth with associ ated extens diane dystro phic calcif icatio ns. IMPRES MARY: Stable postsu rgical change left breast . BI-RAD S Catego ry 2, Benign findin g, routin e follow -up. The patien t has been entere d into an APROOFED er system . Result s were mailed or given to the patien t. Interp reted By: Yue beasley MD Electr onical ly Signed By: Yue beasley MD on 025 4:05 PM INTERFACE [facility] [address], [address], 09/09/2024 16:10:25 Result Notes Documentation Provider Name and Address Organization Details Recorded Time Mammo, Screening, Tomosynthesis, Unilateral, W/ Cad : [address] [address] Patient Name: MELANIE MARTINEZ Patient : 1965 Age: 52 years Patient Ordering Provider: SANTOS BARNETT EXAM DATE: 08/15/2017 EXAM: MG LT SCREENING RISSA MAMMOGRAM INDICATION: Screening. History of right breast cancer treated with mastectomy. PROCEDURE: Multislice imaging of the left breast was performed in standard projections using [employer] tomosynthesis equipment (3D mammography). 2D images were created from the 3D dataset using C-View software. The study was read with the assistance of Computer Aided Detection (CAD) software. COMPARISON: This was compared with previous mammograms dated 07/12/16, 07/09/15, 06/26/14. FINDINGS: There are scattered fibroglandular elements in the left breast. There is no suspicious mass or cluster of calcifications. No architectural distortion. Numerous dystrophic calcifications are noted. There appearance is stable. IMPRESSION: BI-RADS category 2, Benign. There is no evidence of malignancy. Screening mammograms are recommended in one year. Results were mailed or given to the patient. Interpreted By: Kuldip Wilson MD OS BARNETT MD [address] [place] [address], [phone], [facility] 08/15/2017 16:38:58 Mammo, Screening, Tomosynthesis, Unilateral, W/ Cad : [place] [address] Patient Name: MELANIE MARTINEZ Patient : 1965 Age: 53 years Patient Ordering Provider: SANTOS BARNETT EXAM DATE: 02/26/2019 EXAM: MG LT SCREENING RISSA MAMMOGRAM INDICATION: Screening. History of right breast cancer treated with mastectomy. PROCEDURE: Multislice imaging of the left breast was performed in standard projections using [employer] tomosynthesis equipment (3D mammography). 2D images were created from the 3D dataset using C-View software. The study was read with the assistance of Computer Aided Detection (CAD) software. COMPARISON: This was compared with previous mammograms dated 08/15/2017, 07/12/2016, 06/26/2014. FINDINGS: There are scattered fibroglandular elements in the left breast. There is no mass or new cluster of microcalcifications. There is stable scarring from previous reduction mammoplasty with associated fat necrosis and bulky dystrophic calcifications, mainly in the upper breast and retroareolar region. There is no suspicious change. IMPRESSION: BI-RADS category 2, Benign. There is no evidence of malignancy. Screening mammograms are recommended in one year. Results were given to the patient. Interpreted By: Hayden Daily MD Not Available [facility] 10/01/2019 02:38:22 Mammo, Screening, Tomosynthesis, Unilateral, W/ Cad : [place] [id number] Patient Name: MELANIE MARTINEZ Patient : 1965 Age: 56 years Patient Ordering Provider: SANTOS BARNETT EXAM DATE: 09/01/2021 EXAM: MG LT SCREENING RISSA MAMMOGRAM INDICATION: Screening. History of right breast cancer treated with mastectomy. PROCEDURE: Multislice imaging of the left breast was performed in standard projections using [employer]ensions tomosynthesis equipment (3D mammography). 2D images were created from the 3D dataset using C-View software. The study was read with the assistance of Computer Aided Detection (CAD) software. COMPARISON: This was compared with previous mammograms dated 02/26/2019, 08/15/2017, 07/12/2016. FINDINGS: There are scattered fibroglandular elements in the left breast. There is no suspicious mass or cluster of calcifications. No architectural distortion. Multiple coarse calcifications are again noted likely related to fat necrosis and scarring. IMPRESSION: BI-RADS category 2, Benign. There is no evidence of malignancy. Screening mammograms are recommended in one year. Results were mailed or given to the patient. Interpreted By: Kuldip Wilson MD Not Available [facility] 09/01/2021 14:41:54 Mammo, Screening, Tomosynthesis, Unilateral, W/ Cad : [place] [id number] Patient Name: MELANIE MARTINEZ Patient : 1965 Age: 59 years Patient Ordering Provider: SANTOS BARNETT EXAM DATE: 09/08/2024 EXAM: LT SCREENING RISSA MAMMOGRAM INDICATION: Screening. History of right breast cancer treated with mastectomy. History of reduction mastopexy on the left. PROCEDURE: Multislice imaging of the left breast was performed in standard projections using [employer] Dimensions tomosynthesis equipment (3D mammography). 2D images were created from the 3D dataset using C-View software. The study was read with the assistance of Computer Aided Detection (CAD) software. COMPARISON: This was compared with previous mammograms dated 09/01/2021, 02/26/2019, 08/15/2017. DENSITY: There are scattered areas of fibroglandular density. FINDINGS:No new mass, suspicious calcification or area of architectural distortion.Stable postsurgical change is present 12:00 middle third depth with associated extensive dystrophic calcifications. IMPRESSION: Stable postsurgical change left breast. BI-RADS Category 2, Benign finding, routine follow-up. The patient has been entered into an automated reminder system. Results were mailed or given to the patient. Interpreted By: Yue Mendez MD Not Available [facility] 09/09/2024 16:10:25 Problems Name Problem SNOMED Code Status Onset Date Resolution Date Notes Provider Name and Address Organization Details Recorded Time Abdominal pain 74353113 Active 2015 From Automated Load;Provi inocencio: Keira, Columba;Stat us: Active Not Available [facility] 6 02:25:24 Problem Notes None recorded. Procedures Surgical History Date Name Laterality Status Provider Name and Address Organization Details Recorded Time 08/16/19 18 Shave Lesion; trunk, arm, leg completed [facility] 08/15/2017 15:23:15 07/12/19 17 Destruction BN Lesions completed COLUMBA ALEXANDER MD [address] [place] [address], [address], [facility] 07/12/2016 12:44:48 Total Hysterectomy completed [facility] 12/12/2016 08:07:26 Bilateral mastectomy completed [facility] 12/12/2016 08:08:10 Imaging Results None recorded. Procedure Notes None recorded. Medical Equipment None Reported. Allergies Allergen ID Allergen Name Allergen Category Reaction Reaction Severity Criticality Documentation Date Start Date Code Code System Note Provider Name and Address Organization Details Recorded Time 688472 Levaquin medicatio n edema moderate Not available 04/14/20162005 58457 2 RxNorm React ion: EDEMA ;Rosalva rity: Moder ate; Comme nt: Creat ed By: Karl martinez Date: 04/17 3:33: 14 PM; Not Available [facility] 6 04:40:20 566736 tamoxifen citrate medicatio n Not available Not available Not available 04/14/20162012 01939 RxNorm Comme nt: Pulmo nary embol i;Cre ated By: Evelyn stahl Date: 2012 12:07 :12 PM; Not Available [facility] 6 04:40:20 Medications Name Sig Start Date Stop Date Status Note LastModified by Organization Details LastModified Time Neurontin 300 mg capsule Take 1 capsule every day by oral route at bedtime. 08/15 completed Not Available Not Available Not Available clarithro mycin 500 mg tablet Take 1 tablet every 12 hours by oral route for 14 days. 2019 active Not Available Not Available Not Avai lable Medrol (Yong) 4 mg tablets in a dose pack as directed 08/15 completed Not Available Not Available Not Available amoxicill in 500 mg tablet Take 2 tablets every 12 hours by oral route for 14 days. 2019 active Not Available Not Available Not Avai lable Zoloft 50 mg tablet 1 po Daily 03/29 completed Not Available Not Available Not Available omeprazol e 20 mg capsule,d elayed release Take 1 capsule twice a day by oral route for 14 days. 2019 active Not Available Not Available Not Avai lable levalbute rol 1.25 mg/3 mL solution for nebulizat ion Inhale 3 mL every 8 hours by nebuliza tion route. 08/15 completed [id number] 24 Not Available Not Available Not Available Vitamin D2 1,250 mcg (50,000 unit) capsule Take 1 capsule every week by oral route. 08/15 completed Not Available Not Available Not Available Zoloft 100 mg tablet Take 1 tablet every day by oral route. 08/15 completed Not Available Not Available Not Available Suprep Bowel Prep Kit 17.5 gram-3.13 gram-1.6 gram oral solution as directed 10/04 completed Not Available Not Available Not Available One-A-Day Womens Formula 18 mg iron-400 mcg-500 mg Ca tablet 08/15 completed Duration : 10 days;Med ication Descript ion: multivit acevedo with minerals ; Route:or al; refills: 0; Quantity :30 tablet Not Available Not Available Not Available Sutab 1.479-0.1 88-0.225 gram tablet take as directed 2021 active Not Available Not Available Not Avai labmary Vitals Date Recorded Body temperature Oxygen saturation Oxygen saturation in Arterial blood by Pulse oximetry Respiratory rate Heart rate Body height Body mass index (BMI) Body weight Systolic And Diastolic Provider Name and Address Organization Details Last Updated DateTime 9 97.4 [degF] 97 % 97 % 16 /min 109 /min 170.18 cm 32.6 kg/m2 12781.6 1 g 130/80 mm[Hg] [facility] 9 13:38:31 Social History Question Answer Notes LastModified by Organizat ion Details LastModified Time Tobacco Smoking Status Current Every Day [facility] 09:18:52 What Is Your Level Of Caffeine Consumption? Moderate Information not available 07/12/2016 How Much Tobacco Do You Chew? None Information not available 07/12/2016 What Type Of Diet Are You Following? REGULAR Information not available 07/12/2016 Which Illicit Or Recreational Drugs Have You Used? N/a Information not available 07/12/2016 Education 12 Information not available 12/12/2016 Swimming/diving Yes Informa tion not available 07/12/2016 Hard Of Hearing Or Deaf In One Or Both Ears? No Information not available 07/12/2016 Legally Blind In One Or Both Eyes? No Information no t available 07/12/2016 Marital Status Informat ion not available 07/12/2016 What Was The Date Of Your Most Recent Tobacco Screening? 05/28/2018 [id number] Information not available 07/08/2019 How Many Children Do You Have? 2 Information not available 07/12/2016 Do You Use Protection During Sex? Always Information not available 07/12/2016 Seat Belts Used Routinely Yes Information not available 07/12/2016 Are You Sexually Active? Yes Information not available 07/12/2016 Smoke Alarm In Home Yes Information not available 07/12/2016 At What Age Did You Start Smoking Tobacco? 17 Information not available 07/12/2016 How Much Tobacco Do You Smoke? 0.25 PPD Information not available 07/12/2016 General Stress Level Medium Information not available 07/12/2016 Do You Use Sunscreen Routinely? Yes Information not available 07/12/2016 Has Tobacco Cessation Counseling Been Provided? Yes Information not available 12/12/2016 On What Date Was Tobacco Cessation Counseling Provided? 05/28/2018 Information not available 05/28/2018 Sex: Unknown Functional Status Question Answer Note LastModified by Organizat ion Details LastModified Time What is your level of alcohol consumption? Occasional Information not available 07/12/2016 Are you able to care for yourself independently? Yes Information not available 07/12/2016 What is your occupation? [email or web address] Information not available 12/12/2016 What is your exercise level? Occasional Information not available 07/12/2016 Mental Status None recorded. Family History Relationship Description Onset Age of this Age Resolved Age Notes LastModified by Organization Details LastModified Time Mother Alcoholism [email or web address] Not evangelist ilable 12/12/2016 08:06:19 Medical History Condition Response Coronary Artery Disease N Gout N Other N Atrial Fibrillation N Kidney Stones N Hyperthyroidism N Blood Transfusion N Hypothyroidism N Lung Disease N Depression Y COPD N Breast Problem N Difficulty Swallowing N Anxiety Disorder Y Meniere's disease N Muscle, Joint, or Bone Problems N Vision or Eye Problems N Arthritis N Infertility N Polyps N Blood Clot N Cancer Y Stroke N Varicosities N Endometriosis N Bladder or Kidney Problems N High Cholesterol N Liver Disease N Fibromyalgia N Headaches N Kidney Disease N Allergies/Hayfever N Heart Problems N Parkinson's Disease N Ear or Hearing Problems N Hospitalizations N Alzheimer's N Thyroid Problems N GI Problems N Eating Disorder N Skin Problems N Anemia N Constipation N Mental Illness N Diabetes N Ovarian Cancer N Seizures/Epilepsy N Tuberculosis N Eczema N Diverticulitis N Asthma N Reflux/GERD N Sleep Apnea N GERD/Reflux N Hepatitis N Heart Disease N Pulmonary Embolism N Chronic Ear Infections N Pre-Eclampsia N Hypertension N Chicken Pox N Osteoporosis N Thrombophilias N Gynecological History Statement/Question Response STIs/STDs N Age at Menarche 11 Current Control Method Hysterectom y Date of LMP 10/06/2015 Sexually Active? Y Obstetrics History GPAL:G 2 P 0 0 0 2 Type Value Living 2 Total 2 Immunizations Vaccine Type Date Status Note Provider Nam e and Address Organization Details Recorded Time Influenza, split virus, quadrivalent, PF 9 completed Not Available [facility] 06/07/2019 02:46:53 influenza, unspecified formulation 2 completed [facility] 12/12/2016 08:05:22 Pneumococcal Conjugate, unspecified formulation 0 completed [facility] 12/12/2016 08:05:40 Tdap 9 completed [facility] 12/12/2016 08:05:54 Past Encounters Encounter ID Performer Location Encounter Start Date Encounter Closed Date Diagnosis/Indication Diagnosis SNOMED-CT Code Diagnosis ICD10 Code Diagnosis IMO Codes Diagnosis Note [id number] COLUMBA ALEXANDER MD [address] [address] 07/12/2016 08:55:44 07/12/2016 10:14:47 Depressive disorder 11377486 F32.9 She is having some increase in symptoms. Has had increased stress this year and has also had a hysterecto my.I did increase the dosage of her Zoloft to 100 mg daily.she will follow-up in about a month. She will call for any problems. Menopausal symptom 24763 002 E89.41 SHe is unable to take HRT secondary to her history of breast cancer. I am going to try neurontin at night for hot flashes and sleep issues. Bursitis o f olecranon of left elbow [id number] 32957 M70.22 I did reassure her that this should resolve over time. I did recommend that she protect the elbow with a pad. She will let me know if not resolving or if worsening. She did not need any medication for pain. Non-neoplastic nevus 195 038728 I78.1 frozen with liquid nitrogen 3. She will let me know if this does not resolve or if it grows back. if it recurs, then I would refer her to dermatolog y. [id number] SANTOS BARNETT MD HEM/ONC [facility] CLOSED [address],[facility] [address] [place] [address] 07/12/2016 11:32:12 07/12/2016 12:35:56 History of malignant neoplasm of breast 765931769 Z85.3 [id number] COLUMBA ALEXANDER MD [facility] [address] [address] 08/08/2016 09:00:59 08/08/2016 09:44:12 Adult health examination 512768033 Z00.00 She is doing well. I will check lab work. I will schedule a colonoscop y. Her mamogram is up to date. Depressive disorder 7997 2966 F32.9 Symptoms have improved with increase of zoloft to 100 mg daily. No changes made.follo w-up in 4 months. Screening for malignant neoplasm of colon 851804812 Z12.11 Obesity 845500183 E66.9 I rec. that she work on diet and exercise with a goal to lose 10 % of body weight.I gave her the name of a fitness and nutrition seeing eye dog trainer. 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 I did encourage her. She has had flu shot and pneumovax. 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 RIGHT UPPER ABDOMEN SHAVE REMOVAL SEE PROCEDURE NOTE GEL FOAM/PRESS URE BANDAGE CONSENT SIGNED WOUND CARE INSTRUCTIO NS PROVIDED FOLLOW UP PER PATH/PRN Hemangioma 469775272 D18 .00 BENIGN APPEARANCE , PT REASSURED Multiple skin tags 85611 7009 L91.8 BENIGN APPEARANCE , PT REASSURED Solar lentiginosis 79546 2007 L81.4 BENIGN APPEARANCE , PT REASSURED Senile hyperkeratosis 39 4669754 L82.1 BENIGN APPEARANCE , PT REASSURED 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 I will check lab work today as well. I also scheduled her for an event monitor. Her symptoms may be related to the increased stress/dep ressive symptoms that she is having currently. Obesity 732499268 E66.9 I rec. that she work on diet and exercise with a goal to lose 10 % of body weight.I gave her the name of a fitness and nutrition seeing eye dog trainer. Depressive disorder 0439 9000 F32.9 she has taken Zoloft in the past with good results. She stopped it a couple of years ago. She is having increase in symptoms lately. she stated that she is raising her nerody, who is a teenager. this has been rather stressful. I restarted zoloft 50 mg daily. she will let me know if there are any problems. Follow-up in about a month. [id number] HAIDER BAÑUELOS MD [facility] [address] [place] [address] 05/28/2018 14:47:28 05/28/2018 14:47:50 Palpitations 93665799 R00.2 [id number] HAFSA ROBLEDO APRN [facility] [address] [place] [address] 03/30/2020 08:01:38 03/30/2020 09:43:15 Abdominal pain 63226939 R10.9 [id number] LINDA GODDARD MD SURGERY SCHEDULE [address] [place] [address] 09/30/2021 11:46:12 09/30/2021 11:46:54 Health Concerns Section Related Observation LastModified by Organization Detai ls LastModified Time None Recorded Concern Status LastModified by Organization Details LastModified Time None Recorded Advance Directives Directive None Recorded Payers Insurance Date Sequence Insurance Name Policy Number Policy Bo Covered Member ID Bo Member ID Guarantor Name 09/05/2024 1 [place] [id number] 1 Melanie Martinez [id number] Melanie Carmona Jaxtristan 07/30/2018 1 *SELF PAY* Jyothi Martinez Notes Date Note Type Note Provider Name and Address Organization Details Recorded Time 08/15/2017 text/html ROS as noted in the HPI NEW PATIENT - 1) - FSE 2) - PT C/O LESION ON RIGHT MID ABD. X 1 YEAR. (+)ITCH/BLEED/PAIN. NO TREATMENT. Denies any other new, changing, or bleeding lesions, or other rashes. Patient feels well today and is in a good mood. MABEL GUILLORY, POOL INSTALLER [address] [place], [address], [facility] 08/15/2017 17:26:24 05/28/2018 text/html ROS as noted in the HPI 52 yo wf here secondary to past 6 weeks of intermittent heart palpitations. She states that it feels like her heart is pounding. She states that today it has lasted a few hours and is occuring now. She has some dyspnea. Not having CP. She has some lopes's. Not feeling dizzy or light headed. She states that she does have some stress at work/home. She takes zquil nightly to help with sleep but no other meds. Occasionally has palpitations. Sx were occuring once every 2-3 weeks and now occur every 2-3 days. She took zoloft in the past for depression but weaned off of it a couple of years ago. She does not some crying spells. Feeling more worried and anxious.She is generally focused and motivated. Has some irritability and impatience. Her neice has been living with her and she states that this causes her some stress. She thinks that she probably needs to restart the zoloft. COLUMBA ALEXANDER MD [address] [place], [address], [facility] 05/30/2018 12:32:37 03/30/2020 text/html Abdominal PainRe ported by PatientAbdominal PainFor quality, patient reportscrampingandtend er. For associated symptoms, patient reportsheartburn,nause a,constipation, anddecreased appetitebut reportsno fever,no chills,no blood in the urine,no shortness of breath,no vomiting,no diarrhea,no change in stool,no weight gain, andno weight loss(gas). For other, patient reportsdenies possible . For location, (around bra line in the [place]). For duration, (started eight months ago). For onset/timing, (pain radiates to shoulder/chest).Visit today is being conducted via telehealth using both audio and video. Patient has expressed an understanding of the telehealth process and has consented. Patient confirms that he/she is physically located in [place] at the time of this visit. Has been having issues with mid abdominal pain, that sometimes radiates around to shoulder blades. Was just happening occasionally, but now daily. Is working from home and does eat chees and crackers during the day for a snack. Is adopted, but found out from mother had appendix removed before she was [age]. Is now living in [place], will drive to [place] for labs if needed, but would like to go to [facility] for the labs if possible. Had similar issues about 3 or 4 years ago, at that time could not determine what it was. HAFSA ROBLEDO, POOL INSTALLER [address] [place], [address], [facility] 03/30/2020 08:50:33 OBGyn Episode No OBEpisode recorded.
== END 2025-03-25 23:59 | disposition home or self-care (01) ==
LOC: RT 11:31
PROVIDERS: PCP Physician Assistant; Visit Provider Physician Assistant
DX: I49.1 Atrial premature depolarization (principal); R00.0 Tachycardia, unspecified; R94.31 Abnormal electrocardiogram [ECG] [EKG]
CPT/HCPCS: 93225; 93227

== ENCOUNTER 2025-05-01 12:44 | Outpatient (CLI) | payer BC, SELFPAY ==
--- NOTE | 2025-05-01 | CA_ITS ---
APPROVED REPORT EXAM: Comprehensive 2D, Doppler, and color-flow Echocardiogram Senior Loss Control Specialist: Audelia Newman RT(R) Ht: 5 ft 6 in Wt: 200lbs BSA: 2.00 BP: 127/84 mmHg Indications: edema lower extremities mainly in the ankles, smoker, fatigue. 2D Dimensions LA Volume 19.90 mL LA Volume Index 9.95 mL/m2 (M/F) 16-34 EF AP4 69.20 % GL Strain -18.1 % M-Mode Dimensions RVDd 2.50 cm (0.9-2.6) LA Diam 2.78 cm (1.9-4.0) LVDd 4.40 cm (3.5-5.7) LVDs 3.38 cm (3.5-5.7) IVSd 0.83 cm (0.6-1.1) PWd 0.83 cm (0.6-1.1) EF (Teich) 46.60% FS 23.20% EDV (Teich) 87.70 mL ESV (Teich) 46.80 mL LV Diastology E Decel Time 203 (160-240 msec) E/A Ratio 0.8 Mitral Valve MV E Max Padilla. 68.0 (40-130 cm/s) MV A Velocity 82.0 (40-130 cm/s) E/A Ratio 0.83 MV PHT 60.0 ms Left Ventricle The left ventricle is normal size. Left ventricular systolic function is normal. The left ventricular ejection fraction is within the normal range. There is increased left ventricular wall thickness. There is normal LV segmental wall motion. The left ventricular diastolic function is normal. LVEF is 55% Right Ventricle The right ventricle is normal size. The right ventricular systolic function is normal. Atria The left atrium size is normal. The right atrium size is normal. There is no color Doppler evidence of interatrial shunt. Aortic Valve The aortic valve opens well. There is no hemodynamically significant aortic valvular stenosis. No aortic regurgitation is present. Mitral Valve The mitral valve is normal in structure. No evidence of mitral valve stenosis. Trace mitral regurgitation is present. Tricuspid Valve The tricuspid valve leaflets are thin and pliable. Trace tricuspid regurgitation. There is insufficient TR jet to estimate RVSP. Pulmonic Valve The pulmonary valve is grossly normal in structure. Trace pulmonic valve regurgitation is present. Great Vessels The aortic root is normal in size. IVC is normal in size and collapses >50% with inspiration. Pericardium There is no pericardial effusion. Other Information Study Quality: Fair Conclusion Normal biventricular systolic function. No significant valvular stenosis or regurgitation. Electronically signed by : Meaghan Franco MD 05/10/2025 16:09:49
--- NOTE | 2025-05-01 | US_ITS ---
FINAL REPORT CLINICAL HISTORY: current smoker, bilateral claudication, bilateral lower extremity edema. FINDINGS: ANKLE-BRACHIAL PRESSURE INDICES Pressure indices are as follows: RIGHT LOWER EXTREMITY: Ankle-brachial pressure index: 1.21 Comments: Normal LEFT LOWER EXTREMITY: Ankle-brachial pressure index: 1.22 Comments: Normal IMPRESSION: No evidence of significant obstructive peripheral vascular disease of the lower extremities Reviewed, Interpreted and Dictated by Jamey Yoder MD Transcribed by Camilla Chowdhury Authenticated and [facility]
== END 2025-05-01 23:59 | disposition home or self-care (01) ==
LOC: RT 12:45
PROVIDERS: PCP Physician Assistant; Visit Provider Physician Assistant
DX: M25.473 Effusion, unspecified ankle (principal)
CPT/HCPCS: 93306; 93923